=== PATIENT | female | born 1955 | race Two or more races ===

== ENCOUNTER → 2018-08-03 | Outpatient (CLI) | payer BC | END | disposition home or self-care (01) | LOC: HKI 12:58 | DX: M25.561 Pain in right knee (principal); Z96.651 Presence of right artificial knee joint | CPT/HCPCS: 77073 ==

== ENCOUNTER 2018-11-14 06:02 | Inpatient (IN) | payer BC ==
[2018-11-14] MEDS: CEFAZOLIN 2 GM/50 ML (PMX) 50 ML IVPB ×3 (06:00→22:07)
[2018-11-14] MEDS: TRANEXAMIC ACID 1GM/100ML(PMX) 100 ML IV (07:00)
[2018-11-14] MEDS: TRANEXAMIC ACID 1,000 MG in NS 100 ML IV (07:00)
[2018-11-14] MEDS: ACETAMINOPHEN 1000MG/100ML IV 100 ML IVPB (07:14)
[2018-11-14] MEDS: LANSOPRAZOLE 30 MG CAP PO (07:14)
[2018-11-14] MEDS: CELECOXIB 200 MG CAP PO (07:15)
[2018-11-14] MEDS: ONDANSETRON 4 MG INJ IV ×3 (07:15→20:51)
[2018-11-14] MEDS: GABAPENTIN 300 MG CAP PO ×2 (07:15→20:54)
[2018-11-14] MEDS ORDERED: MIDAZOLAM 1 MG/ML 2 ML INJ (07:29)
[2018-11-14] MEDS ORDERED: morphine SULFATE/PF (10 MG/10 ML) INJ (07:29)
[2018-11-14] MEDS ORDERED: CEFAZOLIN 1 GM INJ ×3 (07:29→12:05)
[2018-11-14] MEDS ORDERED: ROCURONIUM 50 MG INJ (07:29)
[2018-11-14] MEDS ORDERED: TRANEXAMIC ACID 1GM/100ML(PMX) 100 ML (07:29)
[2018-11-14] MEDS ORDERED: PROPOFOL 20 ML (07:29)
[2018-11-14] MEDS ORDERED: SEVOFLURANE 15 MIN (07:30)
[2018-11-14] MEDS ORDERED: EPHEDrine 25 MG/5 ML SYG (07:30)
[2018-11-14] MEDS ORDERED: PHENYLephrine (100 MCG/ML) 10ML SYG (07:30)
[2018-11-14] MEDS ORDERED: ROPIVACAINE 0.5 % 30 ML VIAL (07:56)
[2018-11-14] MEDS ORDERED: KETOROLAC 30 MG INJ (09:18)
[2018-11-14] MEDS ORDERED: DEXAMETHASONE 4 MG/ML 5 ML INJ (09:18)
[2018-11-14] MEDS ORDERED: METOCLOPRAMIDE 10 MG INJ (09:18)
[2018-11-14] MEDS ORDERED: ONDANSETRON 4 MG INJ (09:18)
[2018-11-14] MEDS: TOBRAMYCIN 1.2 GM POWDER (09:26)
[2018-11-14] MEDS: VANCOMYCIN 1 GM INJ (09:27)
[2018-11-14 10:03] LABS: SYN FLD MN % 83.9 &; SYN FLD PMN % 16.1 % (0.0-25.0); SYN FLD WBC 168 /cmm (0-150)
[2018-11-14 10:26] LABS: SYN FLD SOURCE RIGHT KNEE
[2018-11-14 10:26] LABS: SYN FLD CLARITY HAZY; SYN FLD COLOR YELLOW
[2018-11-14 10:27] LABS: PATH REVIEW? NO; SYN FLD CRYSTALS NO CRYSTALS SEEN (None seen)
[2018-11-14] MEDS ORDERED: HETASTARCH 6% NACL 500 ML (12:04)
[2018-11-14] MEDS ORDERED: TRANEXAMIC ACID 1GM/100ML(PMX) 200 ML (12:04)
[2018-11-14] MEDS ORDERED: SUGAMMADEX SODIUM 200 MG/2 ML VIAL IV (13:47)
[2018-11-14] MEDS ORDERED: NACL 0.9% 3 ML SYG IV (14:30)
[2018-11-14] MEDS ORDERED: NALOXONE (0.4 MG/ML) INJ IV (14:30)
[2018-11-14] MEDS ORDERED: SENNA/DOCUSATE NA (8.6MG/50MG) TAB PO (14:30)
[2018-11-14] MEDS ORDERED: NA PHOSPHATE/BIPHOS 133 ML ENEMA PR (14:30)
[2018-11-14] MEDS ORDERED: KETOROLAC 15 MG INJ IV (14:30)
[2018-11-14] MEDS ORDERED: DIPHENHYDRAMINE 50 MG INJ IV (14:30)
[2018-11-14] MEDS ORDERED: MAGNESIUM HYDROXIDE 30ML CUP PO (14:30)
[2018-11-14] MEDS ORDERED: HYDROmorphONE 1 MG/ML SYG IV (14:30)
[2018-11-14] MEDS ORDERED: BISACODYL 10 MG SUPP PR (14:30)
[2018-11-14] MEDS ORDERED: oxyCODONE 5 MG TAB PO (14:30)
[2018-11-14] MEDS ORDERED: BETHANECHOL 25 MG TAB PO (14:30)
[2018-11-14] MEDS: DOCUSATE SODIUM 100 MG CAP PO (14:30)
[2018-11-14] MEDS: LACTATED RINGER'S 1,000 ML IV (16:57)
[2018-11-14] MEDS: INSULIN ASPART [NOVOLOG] 3 ML PEN SC (21:00)
[2018-11-14] MEDS: ACETAMINOPHEN 500 MG TAB PO (21:54)
[2018-11-15] MEDS: ACCU-CHEK XX (02:00)
[2018-11-15] MEDS: LACTATED RINGER'S 1,000 ML IV ×2 (02:59→05:17)
[2018-11-15] MEDS: CEFAZOLIN 2 GM/50 ML (PMX) 50 ML IVPB (05:17)
[2018-11-15] MEDS: ACETAMINOPHEN 500 MG TAB PO ×4 (05:20→22:03)
[2018-11-15 05:27] LABS: ADD MAN DIFF? NO
[2018-11-15 05:41] LABS: WHITE BLOOD COUNT 9.4 10^3/ul (4.8-10.8)
[2018-11-15 05:41] LABS: BASOPHILS % 0.1 % (0.0-2.0); HEMATOCRIT 26.7 % (37.0-47.0); LYMPHOCYTES % 10.5 % (15.0-51.0); MEAN CORPUSCULAR HEMOGLOBIN 25.6 pg (29.0-33.0); MEAN CORPUSCULAR VOLUME 85.6 fl (82.0-101.0); MEAN PLATELET VOLUME 10.6 fl (7.4-10.4); MONOCYTE # 0.9 10^3/ul (0.3-0.9); MONOCYTES % 9.6 % (0.0-11.0); NEUTROPHIL # 7.4 10^3/ul (1.6-7.5); NEUTROPHILS % 79.3 % (39.0-77.0); PLATELET COUNT 264 10^3/UL (140-415); RED BLOOD COUNT 3.12 10^6/ul (4.20-5.40); RED CELL DISTRIBUTION WIDTH 14.5 % (11.5-14.5)
[2018-11-15 06:13] LABS: INR 1.14; PROTIME 14.7 Sec (11.9-14.9); PT RATIO 1.1
[2018-11-15 06:36] LABS: MAGNESIUM 1.8 mg/dl (1.7-2.5)
[2018-11-15 06:36] LABS: PHOSPHORUS 3.8 mg/dl (2.5-4.9)
[2018-11-15 06:38] LABS: TROPONIN-I < 0.012 ng/ml (0.000-0.120)
[2018-11-15 06:40] LABS: ALANINE AMINOTRANSFERASE 29 IU/L (13-69); ALBUMIN 2.9 g/dl (3.3-4.9); ALBUMIN/GLOBULIN RATIO 1.31; ALKALINE PHOSPHATASE 55 IU/L (42-121); ANION GAP 3 (5-13); ASPARTATE AMINO TRANSFERASE 32 IU/L (15-46); BILIRUBIN,INDIRECT 0.3 mg/dl (0-1.1); BILIRUBIN,TOTAL 0.3 mg/dl (0.2-1.3); BLOOD UREA NITROGEN 11 mg/dl (7-20); CALCIUM 8.4 mg/dl (8.4-10.2); CARBON DIOXIDE 29 mmol/L (21-31); CHLORIDE 110 mmol/L (97-110); CREATININE 0.46 mg/dl (0.44-1.00); Estimated GFR > 60 mL/min (>60); GLUCOSE 119 mg/dl (70-220); POTASSIUM 4.4 mmol/L (3.5-5.1); SODIUM 142 mmol/L (135-144); TOTAL PROTEIN 5.1 g/dl (6.1-8.1)
[2018-11-15 06:48] LABS: THYROID STIMULATING HORMONE 0.344 MIU/L (0.465-4.680)
[2018-11-15 07:10] LABS: ADD UMIC NO; UR ASCORBIC ACID NEGATIVE (NEGATIVE); UR BILIRUBIN (Dip) NEGATIVE (NEGATIVE); UR BLOOD (Dip) NEGATIVE (NEGATIVE); UR CLARITY CLEAR (CLEAR); UR COLOR YELLOW (YELLOW); UR GLUCOSE (Dip) NEGATIVE (NEGATIVE); UR KETONES (Dip) NEGATIVE (NEGATIVE); UR LEUKOCYTE ESTERASE (Dip) NEGATIVE Leu/ul (NEGATIVE); UR NITRITE (Dip) NEGATIVE (NEGATIVE); UR SPECIFIC GRAVITY (Dip) 1.024 (1.003-1.030); UR TOTAL PROTEIN (Dip) NEGATIVE (NEGATIVE); UR UROBILINOGEN (Dip) NEGATIVE (NEGATIVE)
[2018-11-15] MEDS: INSULIN ASPART [NOVOLOG] 3 ML PEN SC ×4 (07:50→20:39)
[2018-11-15 08:11] LABS: THYROID STIMULATING HORMONE 0.351 MIU/L (0.465-4.680)
[2018-11-15] MEDS: DOCUSATE SODIUM 100 MG CAP PO ×2 (08:41→20:39)
[2018-11-15] MEDS: ASPIRIN (EC) 81 MG TAB PO ×2 (08:41→20:38)
[2018-11-15] MEDS: ONDANSETRON 4 MG INJ IV (09:37)
[2018-11-15] MEDS: oxyCODONE 5 MG TAB PO (19:35)
[2018-11-15] MEDS: GABAPENTIN 300 MG CAP PO (20:39)
[2018-11-16] MEDS: ACCU-CHEK XX (02:00)
[2018-11-16 05:31] LABS: ANION GAP 3 (5-13); BLOOD UREA NITROGEN 8 mg/dl (7-20); CALCIUM 8.4 mg/dl (8.4-10.2); CARBON DIOXIDE 34 mmol/L (21-31); CHLORIDE 103 mmol/L (97-110); Estimated GFR > 60 mL/min (>60); GLUCOSE 104 mg/dl (70-220); POTASSIUM 3.7 mmol/L (3.5-5.1); SODIUM 140 mmol/L (135-144)
[2018-11-16] MEDS: ACETAMINOPHEN 500 MG TAB PO ×2 (05:42→14:54)
[2018-11-16] MEDS ORDERED: PANTOPRAZOLE (EC) 40 MG TAB PO (06:00)
[2018-11-16] MEDS: INSULIN ASPART [NOVOLOG] 3 ML PEN SC ×4 (07:50→20:12)
[2018-11-16] MEDS: ASPIRIN (EC) 81 MG TAB PO ×2 (08:38→20:11)
[2018-11-16] MEDS: DOCUSATE SODIUM 100 MG CAP PO ×2 (08:38→20:12)
[2018-11-16] MEDS: LACTOBACILLUS RHAMNOSUS CAP PO ×2 (08:39→20:11)
[2018-11-16] MEDS: oxyCODONE 5 MG TAB PO (10:57)
[2018-11-16] MEDS: FAMOTIDINE 20 MG TAB PO (20:11)
[2018-11-16] MEDS: GABAPENTIN 300 MG CAP PO (20:11)
== END 2018-11-16 22:00 | DRG 468 ==
LOC: REC 06:02 → MS1 15:54
PROVIDERS: Orthopaedic Surgery Adult Reconstructive Orthopaedic Surgery
PROC: 0SRC0J9 Replacement of Right Knee Joint with Synthetic Substitute, Cemented, Open Approach (ICD-10-PCS; principal; 2018-11-14 07:30)
PROC: 0SPC0JZ Removal of Synthetic Substitute from Right Knee Joint, Open Approach (ICD-10-PCS; 2018-11-14 07:30)
DX: T84.092A Other mechanical complication of internal right knee prosthesis, initial encounter (principal); M17.11 Unilateral primary osteoarthritis, right knee; E11.8 Type 2 diabetes mellitus with unspecified complications; E88.81 Metabolic syndrome and other insulin resistance; I10 Essential (primary) hypertension; E78.5 Hyperlipidemia, unspecified; E03.9 Hypothyroidism, unspecified; K21.9 Gastro-esophageal reflux disease without esophagitis; M19.90 Unspecified osteoarthritis, unspecified site; R62.7 Adult failure to thrive; Z68.25 Body mass index [BMI] 25.0-25.9, adult; Y84.8 Other medical procedures as the cause of abnormal reaction of the patient, or of later complication, without mention of misadventure at the time of the procedure
CPT/HCPCS: 73560; 80048; 80053; 81003; 82962; 83036; 83735; 84100; 84443; 84484; 85025; 85610; 86850; 86900; 86901; 86920; 87070; 87075; 87081; 87086; 87102; 87116; 88300; 88304; 88331; 89060; 93005; 97110; 97116; 97162; 97165; 97530; C1776

== ENCOUNTER 2018-11-16 22:09 | Inpatient (IN) | payer BC ==
[2018-11-16] MEDS ORDERED: KETOROLAC 15 MG INJ IV (22:30)
[2018-11-16] MEDS ORDERED: HYDROmorphONE 1 MG/ML SYG IV (22:30)
[2018-11-16] MEDS: BETHANECHOL 25 MG TAB PO (22:30)
[2018-11-16] MEDS ORDERED: DIPHENHYDRAMINE 50 MG INJ IV (22:30)
[2018-11-16] MEDS ORDERED: NA PHOSPHATE/BIPHOS 133 ML ENEMA PR (22:30)
[2018-11-16] MEDS ORDERED: SENNA TAB PO (22:30)
[2018-11-16] MEDS ORDERED: oxyCODONE 5 MG TAB PO (22:30)
[2018-11-16] MEDS ORDERED: BISACODYL 10 MG SUPP PR (22:30)
[2018-11-16] MEDS ORDERED: NALOXONE (0.4 MG/ML) INJ IV (22:30)
[2018-11-16] MEDS ORDERED: ACETAMINOPHEN 325 MG TAB PO (23:30)
[2018-11-16] MEDS ORDERED: GLUCOSE GEL 15 GRAM TUBE BUCCAL (23:30)
[2018-11-16] MEDS ORDERED: GLUCAGON 1 MG INJ IM (23:30)
[2018-11-16] MEDS ORDERED: DEXTROSE 50% 50 ML SYRINGE IV ×2 (23:30)
[2018-11-16] MEDS ORDERED: GLUCOSE GEL 15 GRAM TUBE PO ×2 (23:30)
[2018-11-16] MEDS: oxyCODONE 15 MG TAB PO (23:54)
[2018-11-17 00:59] LABS: ADD UMIC NO; UR ASCORBIC ACID NEGATIVE (NEGATIVE); UR BILIRUBIN (Dip) NEGATIVE (NEGATIVE); UR BLOOD (Dip) NEGATIVE (NEGATIVE); UR CLARITY CLEAR (CLEAR); UR COLOR YELLOW (YELLOW); UR GLUCOSE (Dip) NEGATIVE (NEGATIVE); UR KETONES (Dip) NEGATIVE (NEGATIVE); UR LEUKOCYTE ESTERASE (Dip) NEGATIVE Leu/ul (NEGATIVE); UR NITRITE (Dip) NEGATIVE (NEGATIVE); UR TOTAL PROTEIN (Dip) NEGATIVE (NEGATIVE); UR UROBILINOGEN (Dip) 1+ mg/dL (NEGATIVE)
[2018-11-17 06:14] LABS: ADD MAN DIFF? NO
[2018-11-17 06:16] LABS: WHITE BLOOD COUNT 5.9 10^3/ul (4.8-10.8)
[2018-11-17 06:16] LABS: ABNORMAL IP MESSAGE 1; BASOPHILS % 0.3 % (0.0-2.0); EOSINOPHILS % 0.7 % (0.0-7.0); HEMATOCRIT 22.2 % (37.0-47.0); LYMPHOCYTES # 1.9 10^3/ul (0.8-2.9); LYMPHOCYTES % 31.5 % (15.0-51.0); MEAN CORPUSCULAR HEMOGLOBIN 26.2 pg (29.0-33.0); MEAN CORPUSCULAR HGB CONC 31.1 g/dl (32.0-37.0); MEAN CORPUSCULAR VOLUME 84.4 fl (82.0-101.0); MEAN PLATELET VOLUME 9.3 fl (7.4-10.4); MONOCYTE # 0.6 10^3/ul (0.3-0.9); MONOCYTES % 10.1 % (0.0-11.0); NEUTROPHIL # 3.4 10^3/ul (1.6-7.5); NEUTROPHILS % 57.1 % (39.0-77.0); PLATELET COUNT 203 10^3/UL (140-415); RED BLOOD COUNT 2.63 10^6/ul (4.20-5.40); RED CELL DISTRIBUTION WIDTH 14.7 % (11.5-14.5)
[2018-11-17 06:24] LABS: HEMOGLOBIN 6.9 g/dl (12.0-16.0); POSITIVE DIFF @See below
[2018-11-17 06:25] LABS: PATH REVIEW? YES
[2018-11-17] MEDS: ACCU-CHEK XX ×4 (07:05→21:57)
[2018-11-17 07:15] LABS: ALANINE AMINOTRANSFERASE 35 IU/L (13-69); ALBUMIN 2.5 g/dl (3.3-4.9); ALKALINE PHOSPHATASE 77 IU/L (42-121); ANION GAP 2 (5-13); ASPARTATE AMINO TRANSFERASE 49 IU/L (15-46); BILIRUBIN,INDIRECT 0.3 mg/dl (0-1.1); BILIRUBIN,TOTAL 0.3 mg/dl (0.2-1.3); BLOOD UREA NITROGEN 10 mg/dl (7-20); CALCIUM 8.4 mg/dl (8.4-10.2); CARBON DIOXIDE 36 mmol/L (21-31); CHLORIDE 100 mmol/L (97-110); CREATININE 0.48 mg/dl (0.44-1.00); Estimated GFR > 60 mL/min (>60); GLUCOSE 100 mg/dl (70-220); POTASSIUM 4.1 mmol/L (3.5-5.1); SODIUM 138 mmol/L (135-144)
[2018-11-17] MEDS: ACETAMINOPHEN 500 MG TAB PO ×3 (07:21→21:20)
[2018-11-17] MEDS: INSULIN ASPART [NOVOLOG] 3 ML PEN SC ×4 (07:35→21:00)
[2018-11-17] MEDS: LACTOBACILLUS RHAMNOSUS CAP PO ×2 (10:47→21:19)
[2018-11-17] MEDS: ASPIRIN (EC) 81 MG TAB PO ×2 (10:47→21:19)
[2018-11-17] MEDS: DOCUSATE SODIUM 100 MG CAP PO ×2 (10:47→21:20)
[2018-11-17 11:19] LABS: IMMEDIATE SPIN CROSSMATCH 1 1
[2018-11-17] MEDS: MAGNESIUM HYDROXIDE 30ML CUP PO (14:20)
[2018-11-17] MEDS ORDERED: KETOROLAC 15 MG INJ IV (14:30)
[2018-11-17 15:59] LABS: ADD MAN DIFF? NO
[2018-11-17 16:01] LABS: WHITE BLOOD COUNT 6.9 10^3/ul (4.8-10.8)
[2018-11-17 16:01] LABS: BASOPHILS % 0.4 % (0.0-2.0); EOSINOPHILS % 0.6 % (0.0-7.0); HEMATOCRIT 27.6 % (37.0-47.0); HEMOGLOBIN 8.8 g/dl (12.0-16.0); LYMPHOCYTES # 1.2 10^3/ul (0.8-2.9); LYMPHOCYTES % 17.5 % (15.0-51.0); MEAN CORPUSCULAR HEMOGLOBIN 26.7 pg (29.0-33.0); MEAN CORPUSCULAR HGB CONC 31.9 g/dl (32.0-37.0); MEAN CORPUSCULAR VOLUME 83.9 fl (82.0-101.0); MEAN PLATELET VOLUME 10.4 fl (7.4-10.4); MONOCYTE # 0.5 10^3/ul (0.3-0.9); MONOCYTES % 7.4 % (0.0-11.0); NEUTROPHIL # 5.1 10^3/ul (1.6-7.5); NEUTROPHILS % 73.8 % (39.0-77.0); PLATELET COUNT 228 10^3/UL (140-415); RED BLOOD COUNT 3.29 10^6/ul (4.20-5.40); RED CELL DISTRIBUTION WIDTH 14.3 % (11.5-14.5)
[2018-11-17 17:01] LABS: FERRITIN 65.6 ng/ml (11.1-264.0)
[2018-11-17] MEDS: metFORMIN 500 MG TAB PO (17:14)
[2018-11-17 17:16] LABS: IRON 27 ug/dl (35-150)
[2018-11-17 17:25] LABS: % IRON SATURATION 11 % SAT (22-52); TOTAL IRON BINDING CAPACITY 241 ug/dl (241-421)
[2018-11-17] MEDS: oxyCODONE 15 MG TAB PO (18:54)
[2018-11-17] MEDS: FAMOTIDINE 20 MG TAB PO (21:20)
[2018-11-17] MEDS: GABAPENTIN 300 MG CAP PO (21:20)
[2018-11-18] MEDS: LEVOTHYROXINE 25 MCG TAB PO (06:31)
[2018-11-18] MEDS: ACETAMINOPHEN 500 MG TAB PO ×3 (06:31→21:20)
[2018-11-18] MEDS: ACCU-CHEK XX ×4 (07:05→21:00)
[2018-11-18] MEDS: INSULIN ASPART [NOVOLOG] 3 ML PEN SC ×4 (07:35→21:00)
[2018-11-18] MEDS: metFORMIN 500 MG TAB PO ×2 (07:57→17:36)
[2018-11-18] MEDS: LACTULOSE 30ML CUP PO (08:52)
[2018-11-18] MEDS: LACTOBACILLUS RHAMNOSUS CAP PO ×2 (08:52→21:20)
[2018-11-18] MEDS: DOCUSATE SODIUM 100 MG CAP PO ×2 (08:53→21:20)
[2018-11-18] MEDS: ASPIRIN (EC) 81 MG TAB PO ×2 (08:53→21:20)
[2018-11-18] MEDS: LISINOPRIL 10 MG TAB PO (08:53)
[2018-11-18] MEDS: SOD FERRIC GLUC COMPLX 125 MG in SOD CHLORIDE 0.9% 100 ML IVPB (12:25)
[2018-11-18] MEDS: GABAPENTIN 300 MG CAP PO (21:20)
[2018-11-18] MEDS: FAMOTIDINE 20 MG TAB PO (21:20)
[2018-11-19] MEDS: oxyCODONE 5 MG TAB PO ×2 (00:10→09:02)
[2018-11-19] MEDS: LEVOTHYROXINE 25 MCG TAB PO (06:44)
[2018-11-19] MEDS: ACETAMINOPHEN 500 MG TAB PO ×3 (06:45→21:40)
[2018-11-19] MEDS: INSULIN ASPART [NOVOLOG] 3 ML PEN SC ×4 (07:35→21:00)
[2018-11-19] MEDS: ACCU-CHEK XX ×4 (07:48→21:37)
[2018-11-19] MEDS: metFORMIN 500 MG TAB PO ×2 (07:55→17:19)
[2018-11-19] MEDS: LACTULOSE 30ML CUP PO (09:01)
[2018-11-19] MEDS: ASPIRIN (EC) 81 MG TAB PO ×2 (09:01→21:35)
[2018-11-19] MEDS: LACTOBACILLUS RHAMNOSUS CAP PO ×2 (09:01→21:35)
[2018-11-19] MEDS: DOCUSATE SODIUM 100 MG CAP PO ×2 (09:02→21:35)
[2018-11-19] MEDS: LISINOPRIL 10 MG TAB PO (09:02)
[2018-11-19] MEDS: SOD FERRIC GLUC COMPLX 125 MG in SOD CHLORIDE 0.9% 100 ML IVPB (12:41)
[2018-11-19] MEDS: FAMOTIDINE 20 MG TAB PO (21:35)
[2018-11-19] MEDS: GABAPENTIN 300 MG CAP PO (21:35)
[2018-11-20] MEDS: LEVOTHYROXINE 25 MCG TAB PO (06:55)
[2018-11-20] MEDS: ACETAMINOPHEN 500 MG TAB PO ×3 (06:55→21:08)
[2018-11-20] MEDS: ACCU-CHEK XX ×4 (07:05→21:00)
[2018-11-20] MEDS: INSULIN ASPART [NOVOLOG] 3 ML PEN SC ×4 (07:35→21:00)
[2018-11-20] MEDS: metFORMIN 500 MG TAB PO ×2 (07:59→17:15)
[2018-11-20] MEDS: ASPIRIN (EC) 81 MG TAB PO ×2 (08:59→21:04)
[2018-11-20] MEDS: DOCUSATE SODIUM 100 MG CAP PO ×2 (08:59→21:04)
[2018-11-20] MEDS: LACTOBACILLUS RHAMNOSUS CAP PO ×2 (08:59→21:08)
[2018-11-20] MEDS: LISINOPRIL 10 MG TAB PO (09:00)
[2018-11-20] MEDS: oxyCODONE 15 MG TAB PO (11:13)
[2018-11-20] MEDS: SOD FERRIC GLUC COMPLX 125 MG in SOD CHLORIDE 0.9% 100 ML IVPB (12:24)
[2018-11-20] MEDS: FAMOTIDINE 20 MG TAB PO (21:04)
[2018-11-20] MEDS: GABAPENTIN 300 MG CAP PO (21:04)
[2018-11-20] MEDS: oxyCODONE 5 MG TAB PO (23:23)
[2018-11-21] MEDS: ACETAMINOPHEN 500 MG TAB PO ×3 (06:15→21:51)
[2018-11-21] MEDS: ACCU-CHEK XX ×4 (07:05→21:54)
[2018-11-21] MEDS: LEVOTHYROXINE 25 MCG TAB PO (07:10)
[2018-11-21] MEDS: INSULIN ASPART [NOVOLOG] 3 ML PEN SC ×4 (07:35→21:00)
[2018-11-21] MEDS: metFORMIN 500 MG TAB PO ×2 (08:07→17:26)
[2018-11-21] MEDS: DOCUSATE SODIUM 100 MG CAP PO ×2 (10:43→21:00)
[2018-11-21] MEDS: ASPIRIN (EC) 81 MG TAB PO ×2 (10:43→20:55)
[2018-11-21] MEDS: LACTOBACILLUS RHAMNOSUS CAP PO ×2 (10:43→20:55)
[2018-11-21] MEDS: LISINOPRIL 10 MG TAB PO (10:44)
[2018-11-21] MEDS: ONDANSETRON 4 MG INJ IV (12:06)
[2018-11-21] MEDS: SOD FERRIC GLUC COMPLX 125 MG in SOD CHLORIDE 0.9% 100 ML IVPB (13:26)
[2018-11-21] MEDS: GABAPENTIN 300 MG CAP PO (20:55)
[2018-11-21] MEDS: FAMOTIDINE 20 MG TAB PO (20:55)
[2018-11-22] MEDS: LEVOTHYROXINE 25 MCG TAB PO (06:31)
[2018-11-22] MEDS: ACETAMINOPHEN 500 MG TAB PO ×3 (06:31→21:18)
[2018-11-22] MEDS: ACCU-CHEK XX ×4 (07:05→21:18)
[2018-11-22] MEDS: INSULIN ASPART [NOVOLOG] 3 ML PEN SC ×4 (07:35→21:00)
[2018-11-22] MEDS: metFORMIN 500 MG TAB PO ×2 (08:09→17:18)
[2018-11-22] MEDS: LISINOPRIL 10 MG TAB PO (08:54)
[2018-11-22] MEDS: ASPIRIN (EC) 81 MG TAB PO ×2 (08:54→20:34)
[2018-11-22] MEDS: LACTOBACILLUS RHAMNOSUS CAP PO ×2 (08:54→20:34)
[2018-11-22] MEDS: DOCUSATE SODIUM 100 MG CAP PO ×2 (08:54→21:00)
[2018-11-22] MEDS: SOD FERRIC GLUC COMPLX 125 MG in SOD CHLORIDE 0.9% 100 ML IVPB (12:26)
[2018-11-22] MEDS: traMADol 50 MG TAB PO (13:19)
[2018-11-22] MEDS: FAMOTIDINE 20 MG TAB PO (20:34)
[2018-11-22] MEDS: GABAPENTIN 300 MG CAP PO (20:34)
[2018-11-23] MEDS: ACETAMINOPHEN 500 MG TAB PO (06:04)
[2018-11-23] MEDS: LEVOTHYROXINE 25 MCG TAB PO (06:10)
[2018-11-23] MEDS: INSULIN ASPART [NOVOLOG] 3 ML PEN SC (07:35)
[2018-11-23] MEDS: ACCU-CHEK XX ×2 (07:54→11:30)
[2018-11-23] MEDS: metFORMIN 500 MG TAB PO (07:55)
[2018-11-23] MEDS: ASPIRIN (EC) 81 MG TAB PO (08:43)
[2018-11-23] MEDS: DOCUSATE SODIUM 100 MG CAP PO (08:44)
[2018-11-23] MEDS: LISINOPRIL 10 MG TAB PO (08:44)
[2018-11-23] MEDS: LACTOBACILLUS RHAMNOSUS CAP PO (08:44)
[2018-11-23] MEDS: traMADol 50 MG TAB PO (09:20)
== END 2018-11-23 12:30 | disposition home or self-care (01) | DRG 561 ==
LOC: VRC 22:09
PROC: 30277N1 Transfusion of Nonautologous Red Blood Cells into Products of Conception, Circulatory, Via Natural or Artificial Opening (ICD-10-PCS; principal; 2018-11-17)
DX: Z47.1 Aftercare following joint replacement surgery (principal); G89.18 Other acute postprocedural pain; Z96.651 Presence of right artificial knee joint; D64.9 Anemia, unspecified; I10 Essential (primary) hypertension; E11.9 Type 2 diabetes mellitus without complications; E03.9 Hypothyroidism, unspecified; K21.9 Gastro-esophageal reflux disease without esophagitis; Z74.09 Other reduced mobility; R42 Dizziness and giddiness
CPT/HCPCS: 36430; 80053; 81003; 82728; 82962; 83540; 85025; 86850; 86900; 86901; 86920; 87081; 87086; 97110; 97116; 97162; 97166; 97530; 97535